=== PATIENT | male | born 1955 | race Caucasian/White ===

== ENCOUNTER 2017-07-16 15:15 | Emergency (ER) | payer MEDICARE, BC ==
[2017-07-16 15:30] VITALS: BP 185/112
== END 2017-07-16 15:30 | disposition home or self-care (01) ==
LOC: ER 15:15
DX: Z13.6 Encounter for screening for cardiovascular disorders (principal)

== ENCOUNTER 2017-07-16 16:28 | Emergency (ER) | payer MEDICARE, BC ==
[2017-07-16 17:35] LABS: Hematocrit 41.9 % (42.0-52.0); Hemoglobin 15.5 gm/dL (13.5-18.0); Mean Cell Volume 103.2 fl (78-100); Mean Corpuscular Hemoglobin 38.2 pg (27-31); Mean Platelet Volume 9.2 fl (6.0-9.5); Neutrophil # 5.4 K/mm3 (1.3-6.0); Neutrophil % 73.8 % (42-75.0); Platelet Count 248 K/mm3 (150-450); Red Blood Count 4.06 M/mm3 (4.7-6.0); Red Cell Distribution Width 12.2 % (11.5-14.0); White Blood Count 7.3 K/mm3 (4.0-10.5)
[2017-07-16 17:55] LABS: ALT 29 U/L (19-67); AST 24 U/L (0-48); Alkaline Phosphatase * 79 U/L (50-170); Anion Gap 14.8 mmol/L (6.8-13.8); BUN/Creatinine Ratio 8.3 (9.0-21.6); Bilirubin, Total 0.5 mg/dL (0.0-1.1); Blood Urea Nitrogen 9 mg/dL (6-23); Ca. Corrected For Albumin 8.7 mg/dL (8.4-10.2); Carbon Dioxide 24.7 mmol/L (24-32.6); Chloride 97 mmol/L (97-106); Glucose * 112 mg/dL (70-110); Potassium 3.5 mmol/L (3.4-4.6); Sodium 133 mmol/L (132-142); Total Protein 7.7 gm/dL (6.2-8.2); Troponin I Less than 0.017 ng/ml (0.00-0.10)
[2017-07-16 18:10] VITALS: BP 148/88
--- NOTE | 2017-07-16 18:26 | ERNOTE ---
Dizziness ER Record Date of Service: 07/16/17 Presenting Symptoms: dizziness Time Seen by Provider: 07/16/17 16:45 Source: patient Exam Limitations: no limitations Immunizations: IMMUNIZATION HX Immunizations Up to Date Yes History of Influenza Vaccine Yes Hx Pneumococcal Vaccination No Allergies/Adverse Reactions: Allergies Allergy/AdvReac Type Severity Reaction Status Date / Time amitriptyline HCl Allergy Severe SHOCK Verified 07/16/17 16:43 [From Elavil] amoxicillin trihydrate AdvReac Mild Diarrhea Verified 07/16/17 16:43 [From Augmentin] divalproex sodium AdvReac Mild MEMORY Verified 07/16/17 16:43 [From Depakote] LOSS, UNABLE TO CONVERSE fesoterodine fumarate AdvReac Mild DIZZINESS Verified 07/16/17 16:43 [From Toviaz] formoterol fumarate AdvReac Mild LARYNGITIS Verified 07/16/17 16:43 [From Dulera] metronidazole [From Flagyl] AdvReac Mild VERTIGO Verified 07/16/17 16:43 mometasone furoate AdvReac Mild LARYNGITIS Verified 07/16/17 16:43 [From Dulera] nabumetone AdvReac Mild NAUSEA, Verified 07/16/17 16:43 VERTIGO, HEARTBURN potassium clavula AdvReac Mild Diarrhea Verified 07/16/17 16:43 *RETIRED-03/31/13 [From Augmentin] solifenacin succinate AdvReac Mild DRY MOUTH, Verified 07/16/17 16:43 [From Vesicare] DIZZINESS topiramate [From Topamax] AdvReac Mild DIZZINESS, Verified 07/16/17 16:43 DRY MOUTH, UNABLE TO CONVERSE ziprasidone HCl [From Geodon] AdvReac Mild DIZZINESS Verified 07/16/17 16:43 ziprasidone mesylate AdvReac Mild DIZZINESS Verified 07/16/17 16:43 [From Geodon] Home Medications: HOME MEDICATIONS Calcium Carbonate [Tums] 500 mg PO DAILY 03/05/13 [Last Taken 03/31/14] Cholecalciferol (Vitamin D3) [Vitamin D3] 1,000 unit PO DAILY 03/05/13 [Last Taken 05/21/14] Duloxetine HCl [Cymbalta] 60 mg PO BID 03/05/13 [Last Taken 03/31/14] Ketorolac Tromethamine [Toradol] 60 mg IM 2XW PRN 03/05/13 [Last Taken 03/31/14] Meperidine HCl [Demerol] 50 mg IM 2XW PRN 03/05/13 [Last Taken 03/31/14] Omeprazole [Prilosec] 40 mg PO BID 03/05/13 [Last Taken 03/31/14] Calcium & Magnesium Carbonate [Antacid Gelatin Caplet] 1 each PO BID 05/22/14 [ Last Taken Unknown] Cyanocobalamin [Vitamin B-12] 1,000 mcg PO DAILY 05/22/14 [Last Taken Unknown] QUEtiapine FUMARATE [Seroquel] 200 mg PO HS 05/22/14 [Last Taken Unknown] Albuterol Sulfate [Proventil Hfa] 2 puff INH Q4H PRN 05/26/14 [Last Taken Unknown] traZODone HCL [Trazodone HCl] 450 mg PO HS 05/26/14 [Last Taken Unknown] Budesonide/Formoterol Fumarate [Symbicort 160-4.5 Mcg Inhaler] 2 puff IH BID [Last Taken Unknown] Diltiazem HCl [Tiazac] 360 mg PO DAILY 06/15/14 [Last Taken Unknown] Gabapentin 400 mg PO TID 10/06/14 [Last Taken Unknown] Levothyroxine Sodium [Synthroid] 125 mcg PO DAILY 10/06/14 [Last Taken Unknown] Promethazine HCl [Phenergan (Promethazine)] 25 mg PO Q4H PRN 10/06/14 [Last Taken Unknown] Dicyclomine HCl [Bentyl] 10 mg PO TID PRN #30 capsule 03/30/16 [Last Taken Unknown] - History of Present Illness Narrative: Patient presents for evaluation of high blood pressure. He has been having dizziness and lightheadedness with standing for weeks. He is scheduled to see Cardiology in [place] for this. Today his BP was high so he came in to be chenced. He took his lisinopril late today. His lisinopril has been tapered from 40mg/day to 5mg/day d/t his lightheadedness. he has no acute Sx today from his recent weeks of Sx. No acute CP or SOB. No fever. No acute abdominal pain. No acute focal N/T/W. His BP is coming down here nicely on its own. Timing and Duration: gradual onset Severity: currently: mild Associated Symptoms: Present: light headedness. Absent: ringing/roaring in ear , nausea, headache, weakness, numbness Sense of movement: Absent: spinning Fainted/near fainted while:: Present: standing Decreased ability to stand/walk:: Absent: weak Usually:: Present: walks w/o assistance Modifying Factors - (Improves): Reports: nothing Modifying Factors - (Worsens): Reports: other - standing Prior Treament: Reports: recently seen, treated by physician Review of Systems - Review of Systems Constitutional: Absent: fever Respiratory: Absent: shortness of breath Cardiology: Absent: chest pain Gastrointestinal/Abdominal: Absent: abdominal pain Genitourinary: Absent: dysuria Neurological: Absent: weakness - Patient's Past Medical History Patient History - Medical: GERD, Migraines Patient History - Cardiac/Respiratory: Hypertension Patient History - Cancer: No Hx of Cancer Patient History - Surgical Procedures: Other Patient History - Other: None - Social History Living Situations: spouse Psych History: No pertinent hx Smoking Status: Never smoker Have you smoked in the past 12 months: No Do you dip or chew tobacco: No Alcohol Use: none Drug Use: none - Immunizations Immunizations Up to Date: Yes Hx Pneumococcal Vaccination: No History of Influenza Vaccine: Yes Physical Exam - Physical Exam General Appearance: Present: alert, no apparent distress Head Exam: Present: normal inspection, no evidence of injury Eye Exam: Normal inspection: bilateral, PERRL: bilateral Ears, Nose, Throat: Present: normal ENT inspection Neck: Present: normal inspection Respiratory: Present: no respiratory distress, normal breath sounds, no accessory muscle use, lungs clear Cardiovascular/Chest: Present: normal peripheral pulses, other - Rate 102 on my exam Gastrointestinal/Abdominal: Present: normal bowel sounds, nontender, soft Extremity Exam: Present: normal inspection Neurological Exam: Present: alert, normal mood/affect, no motor/sensory deficits , other - nih - 0. No evidence of stroke Skin Exam: Present: normal color, warm/dry ED Progress - Results and Orders Patient's Lab Results:: I have reviewed the patient's lab results. - Vital Signs Patient's Vital Signs:: I have reviewed the patient's vital signs. Vital Signs: Vital Signs 07/16/17 07/16/17 07/16/17 16:35 16:44 17:39 Temperature 36.2 C L 36.7 C Pulse Rate 118 H 112 H Respiratory 18 16 Rate Blood Pressure 166/104 146/88 O2 Sat by Pulse 96 98 Oximetry 07/16/17 18:08 Temperature 36.6 C Pulse Rate 100 Respiratory 15 Rate Blood Pressure 148/88 O2 Sat by Pulse 100 Oximetry - EKG EKG read: Interp. by me EKG Comments: Sinus tach rate 109. Non-specific ST/T wave changes, no STEMI - Progress/Reassessment Chief Complaint: Dizziness Progress Note-Subjective: 07/16/17 18:24 Nothing at this point to suggest PE, aortic dissection, ACS, stroke or other acute life threat. Clinically doubt serotonin syndrome. His Sx are not acute and this has been going on for weeks. Has specialist with appointment already. His BP is down nicely after his late dose of home Lisinopril. He feels like going home. I discussed warning signs and reasons to return as well as the need for close f/u. Departure Clinical Impression: Lightheadedness - Departure Disposition: Home self-care Condition: Stable Additional Instructions: Rest. Continue current medications. Keep you appointment with the specialist as scheduled. Record you blood pressures and call your doctor tomorrow with phone follow-up. Return for pain, weakness or if your condition worsens or changes in any way. Referrals: Finn Stafford MD [Primary Care Provider] -
== END 2017-07-16 18:23 | disposition home or self-care (01) ==
LOC: ER 16:28
DX: R42 Dizziness and giddiness (principal)